=== PATIENT | female | born 1955 | race Caucasian/White ===

== ENCOUNTER 2023-02-06 08:04 | Emergency (ER) | payer BC, MEDICARE ==
[~2023-02-06] VITALS: Ht 147.3 cm; Wt 58.4 kg
[~2023-02-06 08:04] MED LIST: HYDR25TA5 PO; MOME17SP5 NS; [UNRECOGNIZED DRUG - CODE] PO; voltaren gel 1%
[2023-02-06] MEDS ORDERED: diazepam inj 5 MG/ML inj. IM ONE (10:00)
[2023-02-06] MEDS ORDERED: ketorolac trometh inj. 60 MG/2 ML VIAL IM ONE (10:00)
[2023-02-06] MEDS ORDERED: CYCL-1 PO (10:01)
[2023-02-06] MEDS ORDERED: PRED20TA PO (10:01)
[2023-02-06 10:42] VITALS: BP 157/65; PULSE 82; RESP 16; TEMP 97.8; O2SAT 98
== END 2023-02-06 10:45 | disposition home or self-care (01) ==
LOC: ER 08:05
DX: S16.1XXA Strain of muscle, fascia and tendon at neck level, initial encounter (principal); Z88.0 Allergy status to penicillin; Z91.041 Radiographic dye allergy status; X58.XXXA Exposure to other specified factors, initial encounter; Y93.89 Activity, other specified; Y92.89 Other specified places as the place of occurrence of the external cause; Y99.8 Other external cause status
CPT/HCPCS: 96372; 99284; J1885; J3360